=== PATIENT | female | born 1970 | race Caucasian/White ===

== ENCOUNTER 2024-05-04 12:21 | Emergency (ER) | payer OTHER ==
[~2024-05-04] VITALS: Ht 172.7 cm; Wt 122.5 kg
== END 2024-05-04 14:12 | disposition home or self-care (01) ==
LOC: ER 12:21
DX: S00.81XA Abrasion of other part of head, initial encounter (principal); K06.9 Disorder of gingiva and edentulous alveolar ridge, unspecified; K02.9 Dental caries, unspecified; W01.198A Fall on same level from slipping, tripping and stumbling with subsequent striking against other object, initial encounter; Z72.0 Tobacco use
CPT/HCPCS: 70486; 71046; 99284-25